=== PATIENT | female | born 1950 ===

== ENCOUNTER 2022-04-27 13:31 | Outpatient (CLI) | payer MEDICARE | END 2022-04-27 13:32 | disposition home or self-care (01) | LOC: CSHCT 13:31 | PROVIDERS: ATTEND Otolaryngology Plastic Surgery within the Head & Neck | DX: G96.01 Cranial cerebrospinal fluid leak, spontaneous (principal); H74.8X1 Other specified disorders of right middle ear and mastoid | CPT/HCPCS: 70480 ==